=== PATIENT | male | born 1960 | race Asian ===

== ENCOUNTER → 2018-09-18 | Outpatient (CLI) | payer OTHER ==
--- NOTE | 2018-09-18 16:23 | RADRPT ---
Vent Rate: 83 bpm RR Interval: 724 msec SD Interval: 176 msec QRS Duration: 96 msec QT Interval: 381 msec QTC Interval: 448 msec P-R-T [place]: 67 - 42 - 32 degrees Sinus rhythm...normal P axis, V-rate 50- 99 Probable left atrial enlargement...P >50mS, <-0.10mV V1 Electronically Signed By: Dale Reed
== END | disposition home or self-care (01) ==
LOC: EKG 13:03
PROVIDERS: ATTEND Internal Medicine
DX: E78.5 Hyperlipidemia, unspecified (principal); F17.210 Nicotine dependence, cigarettes, uncomplicated
CPT/HCPCS: 93005